=== PATIENT | female | born 1950 | race Caucasian/White ===

== ENCOUNTER 2020-01-08 06:43 | Day surgery (SDC) | payer MEDICARE, BC ==
[2020-01-08] MEDS ORDERED: Lactated Ringers 1,000 ML IV SCH (07:00)
[2020-01-08] MEDS ORDERED: Propofol 200 MG/20 ML SDV ONE (07:25)
[2020-01-08] MEDS ORDERED: fentaNYL 100 MCG/2 ML SDV ONE (07:27)
--- NOTE | 2020-01-08 12:23 | OR ---
PREOPERATIVE DIAGNOSIS: History of colon polyps. POSTOPERATIVE DIAGNOSES: 1. History of colon polyps. 2. Multiple colon polyps. ANESTHESIA: MAC anesthesia. COMPLICATIONS: None. BLOOD LOSS: None. FINDINGS: 1. Internal and external hemorrhoids. 2. Cecal polyps x3, 1 mm to 6 mm, hot snare and cold forceps. 3. Transverse colon polyp, 2 mm, cold forceps. 4. Splenic flexure polyp, 5 mm, hot snare. 5. Sigmoid colon polyp, 6 mm, hot snare. 6. Pancolonic diverticulosis. INDICATION FOR PROCEDURE: Ms. Campbell is a 69-year-old female who is here for routine screening colonoscopy. Her last colonoscopy was in 2013. She had 2 tubular adenomas. She has no personal or family history of colon cancer and denies any changes in bowel habits and no bloody or dark black stools. DETAILS OF PROCEDURE: After informed consent obtained, the patient was brought to the procedure room, placed in left lateral decubitus position. MAC anesthesia induced by Anesthesia colleagues. Digital rectal exam revealed external hemorrhoids. The colonoscope was then introduced into the rectum and advanced all the way to the cecum. The ileocecal valve and appendiceal orifice were photographed. The colonoscope was then slowly withdrawn. No pathology was identified other than what is mentioned above in the findings section. The patient tolerated the procedure well, was woken from anesthesia by Anesthesia colleagues without incident. START TIME: 07:39. CECUM TIME: 07:51. STOP TIME: 08:16. PATHOLOGY: A) Colon, cecal polyps: Fragments of tubular adenomas B) Colon, transverse polyp: Tubular adenoma C) Colon, splenic flexure polyp: Tubular adenoma D) Colon, sigmoid polyp: Fragments of tubular adenoma Recommended repeat screening colonoscopy in 3 years. RKM: 01/08/2020 08:21:24 MODL: 01/08/2020 08:58:19 /[id number] ROES
== END 2020-01-08 09:45 | disposition home or self-care (01) ==
LOC: VM.SDS 06:43
PROVIDERS: ATTEND Student in an Organized Health Care Education/Training Program
DX: Z12.11 Encounter for screening for malignant neoplasm of colon (principal); D12.0 Benign neoplasm of cecum; D12.3 Benign neoplasm of transverse colon; D12.5 Benign neoplasm of sigmoid colon; K57.30 Diverticulosis of large intestine without perforation or abscess without bleeding; I10 Essential (primary) hypertension; J43.1 Panlobular emphysema; Z98.890 Other specified postprocedural states; Z86.010 Personal history of colon polyps; Z79.899 Other long term (current) drug therapy; Z87.891 Personal history of nicotine dependence; Z79.01 Long term (current) use of anticoagulants
CPT/HCPCS: 00811; 36415; 45380; 45384; 45385; 85610; 88305; J2704; J3010; J7120

== ENCOUNTER 2021-01-31 13:55 | Emergency (ER) | payer MEDICARE, BC ==
--- NOTE | 2021-01-31 14:38 | EDM.PDOC ---
ED HPI GENERAL MEDICAL PROBLEM - General Chief Complaint: General Stated Complaint: headache, not feeling well, abnormal taste Time Seen by Provider: 01/31/21 14:38 Source of Information: Reports: Patient History Limitations: Reports: No Limitations - History of Present Illness INITIAL COMMENTS - FREE TEXT/NARRATIVE: Patient states that she has not been feeling well for the last several days. She has had a headache, fatigue, lack of appetite and states that food does not taste right. headache is behind her eyes. NO fevers or chills. No cough. normal stools and urine. She and her are to go to a family gathering today and she became concerned she was ill or had covid and wanted evaluation prior to attending. Has had her covid vaccinations. No ill contacts, no travel. She states she did have a fall two weeks ago and fell on her right wrist and head. She was seen and diagnosed with a right wrist fracture. No head CT was done. She is on coumadin Duration: Day(s): Location: Reports: Head Quality: Reports: Ache Severity: Moderate Improves with: Reports: Medication (hydrocodone that is already on) Associated Symptoms: Reports: Headaches, Loss of Appetite, Malaise - Related Data Allergies Allergy/AdvReac Type Severity Reaction Status Date / Time No Known Allergies Allergy Verified 01/31/21 14:02 Home Meds: Home Meds Acetaminophen [Tylenol Extra Strength] 1 - 2 tab PO Q6H PRN 04/24/14 [History] Cholecalciferol (Vitamin D3) [Vitamin D3] 1 cap PO DAILY 04/24/14 [History] Cyanocobalamin (Vitamin B-12) [Vitamin B-12] 1 tab PO DAILY 04/24/14 [History] Hydrocodone/Acetaminophen [[place] 5-325] 1 tab PO QID PRN 04/24/14 [History] Lansoprazole [Prevacid] 1 tab PO DAILY 04/24/14 [History] Pramipexole [Mirapex] 4 mg PO BEDTIME 04/24/14 [History] Warfarin Sodium [Jantoven] 2.5 - 5 mg PO DAILY 04/24/14 [History] Acyclovir [Zovirax] 400 mg PO TID PRN 12/19/19 [History] DULoxetine [Cymbalta] 60 mg PO DAILY 12/19/19 [History] Pregabalin 50 mg PO TID 12/19/19 [History] atorvaSTATin [Lipitor] 20 mg PO DAILY 12/19/19 [History] Amoxicillin/Potassium Clav [Augmentin 875-125 Tablet] 1 each PO Q12HR 4 Days #8 tablet 01/31/21 [Rx] Past Medical History HEENT History: Reports: Cataract, Macular Degeneration, Other (See Below) Other HEENT History: PRESBYOPIA; PSEUDOPHAKIA; HYPERMETROPIA. COLD SORES. NOSE LESION. VOCAL CORD POLYP Cardiovascular History: Reports: Blood Clots/VTE/DVT, CAD, High Cholesterol, Hypertension, Prior Cardiac Arrest, Other (See Below) Other Cardiovascular History: PERFORATED VENTRICLE DURING ANGIOGRAM. 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 ATHEROSCLEROSIS. POST-THROMBOTIC SYNDROME. VARICOSE VEINS. VENOUS INSUFFICIENCY Other Respiratory History: PANLOBULAR EMPHYSEMA Gastrointestinal History: Reports: Colon Polyp, Diverticulosis, Hiatal Hernia Genitourinary History: Reports: Neurogenic Bladder, Urinary Incontinence FEEDER LOADER History: Reports: Other (See Below) Other FEEDER LOADER History: POST MENOPAUSAL Musculoskeletal History: Reports: Back Pain, Chronic Other Musculoskeletal History: SPINAL CORD STROKE. SPINAL STENOSIS. TRUNAKKEIKAR FX Other Neuro History: RLS Psychiatric History: Reports: Other (See Below) Other Psychiatric History: PAIN CONTRACT. TOBACCO USE. CHRONIC USE OF OPIOIDS. NICOTINE DEPENDENCE. INSOMNIA Endocrine/Metabolic History: Reports: Osteopenia, Vitamin D Deficiency Hematologic History: Reports: B12 Deficiency Oncologic (Cancer) History: Reports: Basal Cell Carcinoma Dermatologic History: Reports: Other (See Below) Other Dermatologic History: BACK SKIN LESION - Past Surgical History HEENT Surgical History: Reports: Cataract Surgery Other HEENT Surgeries/Procedures: TEETH EXTRACTION Cardiovascular Surgical History: Reports: Vascular Surgery Other Cardiovascular Surgeries/Procedures: OPEN HEART SURGERY AFTER PERFORATED VENTRICAL DURING ANGIOGRAM Musculoskeletal Surgical History: Reports: Carpal Tunnel, ORIF Dermatological Surgical History: Reports: Skin Biopsy Social & Family History - Tobacco Use Tobacco Use Status *Q: Former Tobacco User Used Tobacco, but Quit: Yes Month/Year Tobacco Last Used: 11/25 - Caffeine Use Caffeine Use: Reports: Coffee ED ROS GENERAL - Review of Systems Review Of Systems: See Below Constitutional: Reports: Malaise, Weakness, Fatigue, Decreased Appetite. Denies: Fever, Chills HEENT: Reports: Rhinitis. Denies: Eye Discharge, Sinus Problem, Throat Pain, Throat Swelling Respiratory: Denies: Shortness of Breath, Wheezing, Pleuritic Chest Pain, Cough Cardiovascular: Reports: Lightheadedness. Denies: Chest Pain, Dyspnea on Exertion, Edema Endocrine: Reports: Fatigue GI/Abdominal: Reports: Anorexia, Decreased Appetite. Denies: Diarrhea, Nausea, Vomiting : Reports: Dysuria. Denies: Hematuria, Incontinence Musculoskeletal: Reports: Muscle Pain (non specific) Skin: Reports: No Symptoms Neurological: Reports: Headache Hematologic/Lymphatic: Reports: No Symptoms ED EXAM, GENERAL - Physical Exam Exam: See Below Exam Limited By: No Limitations General Appearance: Alert, WD/WN, No Apparent Distress Eye Exam: Bilateral Eye: EOMI, Normal Inspection, PERRL, Other (no nystagmus) Ears: Normal External Exam Nose: Normal Inspection, Normal Mucosa, Clear Rhinorrhea Throat/Mouth: Normal Inspection, Normal Lips, Normal Voice, Other (minimal dry mucous membranes) Neck: Non-Tender, Full Range of Motion. No: Lymphadenopathy (L), Lymphadenopathy (R) Respiratory/Chest: No Respiratory Distress, Lungs Clear, Normal Breath Sounds Cardiovascular: Normal Peripheral Pulses, Regular Rate, Rhythm, No Murmur GI/Abdominal: Normal Bowel Sounds, Soft, Non-Tender, No Organomegaly, No Distention, No Abnormal Bruit Back Exam: Normal Inspection, Full Range of Motion. No: CVA Tenderness (L), CVA Tenderness (R) Extremities: Normal Inspection, Normal Range of Motion, Non-Tender Neurological: Alert, Oriented, CN II-XII Intact, Normal Cognition, Normal Gait (negative pronator drift. normal finger to nose with eyes closed, normal heel to simon), No Motor/Sensory Deficits Psychiatric: Normal Affect Course - Vital Signs Last Recorded V/S: Last Vital Signs Temp 36.6 C 01/31/21 13:55 Pulse 84 01/31/21 13:55 Resp 18 01/31/21 13:55 BP 144/72 H 01/31/21 13:55 Pulse Ox 96 01/31/21 13:55 - Orders/Labs/Meds Orders: Active Orders 24 hr Category Date Time Status AMMONIA [REF] Stat Lab 01/31/21 14:49 Received Labs: Laboratory Tests 01/31/21 01/31/21 01/31/21 Range/Units 14:27 14:49 14:49 WBC 4.8 (4.0-10.0) x10^3/uL RBC 3.90 L (4.00-5.50) x10^6/uL Hgb 12.4 (12.0-16.0) g/dL Hct 36.2 (33.0-47.0) % MCV 92.8 (78.0-93.0) fL MCH 31.8 (26.0-32.0) pg MCHC 34.3 (32.0-36.0) g/dL RDW Coeff of Virgie 14.9 (10.0-15.0) % Plt Count 159 (130-400) x10^3/uL Neut % (Auto) 56.2 (50.0-80.0) % Lymph % (Auto) 33.5 (25.0-50.0) % [place] % (Auto) 8.0 (2.0-11.0) % Eos % (Auto) 1.7 (0.0-4.0) % Baso % (Auto) 0.6 (0.2-1.2) % PT (9.9-12.5) SEC INR (2.0-3.5) Sodium 142 (136-145) mmol/L Potassium 3.6 (3.5-5.1) mmol/L Chloride 105 (98-107) mmol/L Carbon Dioxide 28 (21-32) mmol/L Anion Gap 12.6 (5-15) mmol/L BUN 17 (7-18) mg/dL Creatinine 1.2 H (0.55-1.02) mg/dL Est Cr Clr Drug Dosing TNP Estimated GFR (MDRD) 44 Glucose 102 H (70-99) mg/dL Calcium 8.8 (8.5-10.1) mg/dL Corrected Calcium 9.0 (8.5-10.1) mg/dL Total Bilirubin 0.7 (0.2-1.0) mg/dL AST 12 L (15-37) U/L ALT 19 (14-59) U/L Alkaline Phosphatase 93 (46-116) U/L Total Protein 7.3 (6.4-8.2) g/dL Albumin 3.7 (3.4-5.0) g/dL Globulin 3.6 Albumin/Globulin Ratio 1.03 Urine Color (YELLOW) Urine Appearance (CLEAR) Urine pH (5.0-8.0) Ur Specific [place] Urine Protein (NEGATIVE) mg/dL Urine Glucose (UA) (NEGATIVE) mg/dL Urine Ketones (NEGATIVE) mg/dL Urine Occult Blood (NEGATIVE) Urine Nitrite (NEGATIVE) Urine Bilirubin (NEGATIVE) Urine Urobilinogen (0.2) EU/dL Ur Leukocyte Esterase (NEGATIVE) Urine RBC (NOT SEEN) /HPF Urine WBC (NOT SEEN) /HPF Ur Squamous Epith Cells (NOT SEEN) /HPF Amorphous Sediment Urine Bacteria (NOT SEEN) /HPF Urine Mucus (NOT SEEN) /LPF SARS CoV-2 RNA Rapid BRYAN Negative (NEGATIVE) 01/31/21 01/31/21 Range/Units 14:49 14:58 WBC (4.0-10.0) x10^3/uL RBC (4.00-5.50) x10^6/uL Hgb (12.0-16.0) g/dL Hct (33.0-47.0) % MCV (78.0-93.0) fL MCH (26.0-32.0) pg MCHC (32.0-36.0) g/dL RDW Coeff of Virgie (10.0-15.0) % Plt Count (130-400) x10^3/uL Neut % (Auto) (50.0-80.0) % Lymph % (Auto) (25.0-50.0) % [place] % (Auto) (2.0-11.0) % Eos % (Auto) (0.0-4.0) % Baso % (Auto) (0.2-1.2) % PT 22.7 H (9.9-12.5) SEC INR 2.0 (2.0-3.5) Sodium (136-145) mmol/L Potassium (3.5-5.1) mmol/L Chloride (98-107) mmol/L Carbon Dioxide (21-32) mmol/L Anion Gap (5-15) mmol/L BUN (7-18) mg/dL Creatinine (0.55-1.02) mg/dL Est Cr Clr Drug Dosing Estimated GFR (MDRD) Glucose (70-99) mg/dL Calcium (8.5-10.1) mg/dL Corrected Calcium (8.5-10.1) mg/dL Total Bilirubin (0.2-1.0) mg/dL AST (15-37) U/L ALT (14-59) U/L Alkaline Phosphatase (46-116) U/L Total Protein (6.4-8.2) g/dL Albumin (3.4-5.0) g/dL Globulin Albumin/Globulin Ratio Urine Color Dark yellow H (YELLOW) Urine Appearance Turbid H (CLEAR) Urine pH 5.5 (5.0-8.0) Ur Specific [place] 1.025 Urine Protein 100 H (NEGATIVE) mg/dL Urine Glucose (UA) Negative (NEGATIVE) mg/dL Urine Ketones Trace H (NEGATIVE) mg/dL Urine Occult Blood Trace-lysed H (NEGATIVE) Urine Nitrite Positive H (NEGATIVE) Urine Bilirubin Negative (NEGATIVE) Urine Urobilinogen 0.2 (0.2) EU/dL Ur Leukocyte Esterase Moderate H (NEGATIVE) Urine RBC 0-5 (NOT SEEN) /HPF Urine WBC >100 H (NOT SEEN) /HPF Ur Squamous Epith Cells Moderate H (NOT SEEN) /HPF Amorphous Sediment Moderate Urine Bacteria Moderate H (NOT SEEN) /HPF Urine Mucus Few H (NOT SEEN) /LPF SARS CoV-2 RNA Rapid BRYAN (NEGATIVE) Meds: Medications Discontinued Medications Generic Name Dose Route Start Last Admin Trade Name Freq PRN Reason Stop Dose Admin Amoxicillin/Clavulanate Potassium 1 packet 01/31/21 15:50 01/31/21 15:59 Take Home: Amoxicillin/Clavulanate K 875-125 Mg Tab, 2 Tab Pack PO 01/31/21 15:51 1 packet ONETIME ONE Administration - Radiology Interpretation Free Text/Narrative:: Ct head with no acute process - Re-Assessments/Exams Free Text/Narrative Re-Assessment/Exam: 01/31/21 17:17 patient denies needing anything for her headache, would just like an evaluation and make sure she is fine evaluation is negative other than a UTI. on coumadin. States the last medication she was on worked well. Medication search reveals it was bactrim. Concern for interaction with coumadin. Last urine culture from chart reveals sensitivity to all antibiotics but intermediate to macrobid. Will put her on augmentin , given two for today and script for rest Departure - Departure Time of Disposition: 15:48 Disposition: Home, Self-Care 01 Clinical Impression: Urinary tract infection - Discharge Information *PRESCRIPTION DRUG MONITORING PROGRAM REVIEWED*: Not Applicable *COPY OF PRESCRIPTION DRUG MONITORING REPORT IN PATIENT DELBERT: Not Applicable Prescriptions: Amoxicillin/Potassium Clav [Augmentin 875-125 Tablet] 1 each PO Q12HR 4 Days #8 tablet Instructions: Urinary Tract Infection, Adult Referrals: Fiorella England MD [Primary Care Provider] - Forms: ED Department Discharge Additional Instructions: You are given a dose of Augmentin for today, take one now and one at bedtime. increased your fluid. Fill your prescription and complete treatment. You will be contacted as to need for changes in antibiotics. Other testing is normal Follow up with your PCP. Recheck your INR at the end of treatment as antibiotics can affect this. COVID testing was negative and no acute intercranial process is noted Sepsis Event Note (ED) - Evaluation Sepsis Screening Result: No Definite Risk - Focused Exam Vital Signs: Vital Signs Temp Pulse Resp BP Pulse Ox 01/31/21 13:55 36.6 C 84 18 144/72 H 96 - My Orders Last 24 Hours: My Active Orders 01/31/21 14:49 AMMONIA [REF] Stat - Assessment/Plan Last 24 Hours: My Active Orders 01/31/21 14:49 AMMONIA [REF] Stat
[2021-01-31 15:15] LABS: CHLORIDE,CL 105 mmol/L (98-107); SODIUM,NA 142 mmol/L (136-145)
--- NOTE | 2021-01-31 15:15 | CT ---
[id number] CT/CT Head WO IV EXAM: CT Head WO IV CLINICAL DATA: TRAUMA ANTICOAGULATED PATIENT COMPARISON: No previous similar exam is available for comparison. 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 There is no hemorrhage or hydrocephalus. There are no extra-axial fluid collections. There are no sites of abnormal attenuation. IMPRESSION: NO PLAIN CT EVIDENCE OF ACUTE INTRACRANIAL PROCESS. Merlin Flynn MD 01/31/21 [id number] Thank you for allowing us to participate in the care of your patient.
[2021-01-31 15:20] LABS: ANION GAP 12.6 mmol/L (5-15)
[2021-01-31] MEDS ORDERED: Take Home: Amoxicillin/Clavulanate K 875-125 MG Tab, 2 Tab Pack PO ONE (15:50)
== END 2021-01-31 16:04 | disposition home or self-care (01) ==
LOC: VM.ED 13:55
DX: N39.0 Urinary tract infection, site not specified (principal); I25.10 Atherosclerotic heart disease of native coronary artery without angina pectoris; E78.00 Pure hypercholesterolemia, unspecified; I10 Essential (primary) hypertension; Z87.891 Personal history of nicotine dependence; Z20.822 Contact with and (suspected) exposure to COVID-19; Z79.01 Long term (current) use of anticoagulants; Z79.899 Other long term (current) drug therapy
CPT/HCPCS: 36415; 70450; 80053; 81001; 82140; 85025; 85610; 99284; 99284-25; A9270-GY; U0002

== ENCOUNTER 2023-04-21 06:54 | Day surgery (SDC) | payer MEDICARE, BC ==
[2023-04-21] MEDS ORDERED: Lactated Ringers 1,000 ML IV SCH (07:00)
[2023-04-21] MEDS ORDERED: Propofol 200 MG/20 ML SDV ONE ×2 (08:26→09:08)
[2023-04-21] MEDS ORDERED: fentaNYL 100 MCG/2 ML SDV ONE (08:26)
== END 2023-04-21 10:45 | disposition home or self-care (01) ==
LOC: VM.SDS 06:54
PROVIDERS: ATTEND Student in an Organized Health Care Education/Training Program
DX: K31.811 Angiodysplasia of stomach and duodenum with bleeding (principal); D64.9 Anemia, unspecified; I10 Essential (primary) hypertension; E78.00 Pure hypercholesterolemia, unspecified; Z86.718 Personal history of other venous thrombosis and embolism; G25.81 Restless legs syndrome; G89.29 Other chronic pain; M54.42 Lumbago with sciatica, left side; Z79.01 Long term (current) use of anticoagulants; Z79.899 Other long term (current) drug therapy; M85.80 Other specified disorders of bone density and structure, unspecified site; Z87.891 Personal history of nicotine dependence; G47.01 Insomnia due to medical condition
CPT/HCPCS: 00811; J2704; J3010; J7120

== ENCOUNTER 2025-03-09 16:04 | Inpatient (IN) | payer MEDICARE, BC ==
[2025-03-09] MEDS ORDERED: Sodium Chloride 0.9% 10 ML Syringe FLUSH PRN (16:13)
[2025-03-09 16:32] LABS: BASOPHILS ABSOLUTE AUTO 0.0 x10^3/uL (0.0-0.2); BASOPHILS PERCENT AUTO 0.1 % (0.2-1.2); EOSINOPHILS ABSOLUTE AUTO 0.0 x10^3/uL (0.0-0.5); EOSINOPHILS PERCENT AUTO 0.1 % (0.0-4.0); IMMATURE GRAN ABSOLUTE AUTO 0.03 x10^3/uL (0.00-0.07); IMMATURE GRAN PERCENT AUTO 0.20 % (0.00-0.43); LYMPHOCYTES ABSOLUTE AUTO 1.2 x10^3/uL (1.0-4.8); LYMPHOCYTES PERCENT AUTO 6.8 % (25.0-50.0); MONOCYTES ABSOLUTE AUTO 1.0 x10^3/uL (0.0-0.8); MONOCYTES PERCENT AUTO 5.5 % (2.0-11.0); NEUTROPHILS ABSOLUTE AUTO 15.3 x10^3/uL (1.8-7.7); NEUTROPHILS PERCENT AUTO 87.3 % (50.0-80.0); PLATELET COUNT,PLT 371 x10^3/uL (130-400); RED BLOOD CELL COUNT 3.67 x10^6/uL (4.00-5.50); WHITE BLOOD CELL COUNT,WBC 17.5 x10^3/uL (4.0-10.0)
[2025-03-09] MEDS: Ondansetron 4 MG/2 ML SDV IVPUSH ONE (16:33)
[2025-03-09] MEDS: Lactated Ringers 1,000 ML IV ONE (16:33)
[2025-03-09 16:53] LABS: A/G RATIO 0.56; ALANINE AMINOTRANSFERASE,ALT 12.0 U/L (14-59); ASPARTATE AMNIOTRANSFERASE,AST 23.0 U/L (15-37); BILIRUBIN TOTAL 0.4 mg/dL (0.2-1.0); BLOOD UREA NITROGEN,BUN 17.0 mg/dL (7-18); CARBON DIOXIDE,CO2 25.0 mmol/L (21-32); CHLORIDE,CL 102.0 mmol/L (98-107); CREATININE 1.4 mg/dL (0.55-1.02); EST CRCL DRUG DOSING (CG) 30.76 mL/min; GLUCOSE RANDOM 143.0 mg/dL (70-99); POTASSIUM,K 3.6 mmol/L (3.5-5.1); PROTEIN TOTAL,TP 7.0 g/dL (6.4-8.2); SODIUM,NA 139.0 mmol/L (136-145)
[2025-03-09 17:01] LABS: ESTIMATED GFR 39.0 mL/min (>=60)
[2025-03-09 17:14] LABS: INR 1.5 (0.9-1.1)
[2025-03-09] MEDS: Clindamycin Phosphate in D5W 600 MG in Premix Bag 1 BAG IV ONE (18:06)
[2025-03-09] MEDS ORDERED: Acetaminophen/HYDROcodone 325-5 MG Tab PO PRN (20:26)
[2025-03-09] MEDS ORDERED: Sennosides/Docusate Sodium 50-8.6 MG Tab PO PRN (20:26)
[2025-03-09] MEDS ORDERED: Ondansetron 4 MG/2 ML SDV IV PRN (20:26)
[2025-03-09] MEDS: NS + KCl 20mEq/L 1,000 ML IV SCH (21:54)
[2025-03-09 23:43] LABS: LACTIC ACID 0.8 mmol/L (0.4-2.0)
[2025-03-10 06:43] LABS: BASOPHILS ABSOLUTE AUTO 0.0 x10^3/uL (0.0-0.2); BASOPHILS PERCENT AUTO 0.2 % (0.2-1.2); EOSINOPHILS ABSOLUTE AUTO 0.1 x10^3/uL (0.0-0.5); EOSINOPHILS PERCENT AUTO 0.9 % (0.0-4.0); IMMATURE GRAN ABSOLUTE AUTO 0.02 x10^3/uL (0.00-0.07); IMMATURE GRAN PERCENT AUTO 0.20 % (0.00-0.43); LYMPHOCYTES ABSOLUTE AUTO 1.3 x10^3/uL (1.0-4.8); LYMPHOCYTES PERCENT AUTO 12.4 % (25.0-50.0); MONOCYTES ABSOLUTE AUTO 0.7 x10^3/uL (0.0-0.8); MONOCYTES PERCENT AUTO 7.4 % (2.0-11.0); NEUTROPHILS ABSOLUTE AUTO 7.9 x10^3/uL (1.8-7.7); NEUTROPHILS PERCENT AUTO 78.9 % (50.0-80.0); PLATELET COUNT,PLT 257 x10^3/uL (130-400); RED BLOOD CELL COUNT 2.91 x10^6/uL (4.00-5.50); WHITE BLOOD CELL COUNT,WBC 10.1 x10^3/uL (4.0-10.0)
[2025-03-10 06:57] LABS: BLOOD UREA NITROGEN,BUN 16.0 mg/dL (7-18); CARBON DIOXIDE,CO2 26.0 mmol/L (21-32); CHLORIDE,CL 107.0 mmol/L (98-107); CREATININE 0.9 mg/dL (0.55-1.02); EST CRCL DRUG DOSING (CG) 47.85 mL/min; GLUCOSE RANDOM 86.0 mg/dL (70-99); POTASSIUM,K 4.0 mmol/L (3.5-5.1); SODIUM,NA 142.0 mmol/L (136-145)
[2025-03-10 07:00] LABS: ESTIMATED GFR 66.0 mL/min (>=60)
[2025-03-10 07:08] LABS: INR 1.6 (0.9-1.1)
[2025-03-10] MEDS ORDERED: Lidocaine 2% Viscous Solution 15 ML UD PO PRN (08:37)
[2025-03-10] MEDS ORDERED: Ondansetron 4 MG Tab.DIS PO PRN (08:39)
[2025-03-10] MEDS ORDERED: LANSOPRAZOLE 30 MG PO SCH (09:00)
[2025-03-10] MEDS: Morphine Oral Concentrate 20 MG/ML 30 ML Bottle PO PRN (09:21)
[2025-03-10] MEDS: Cholecalciferol (Vitamin D3) 10 MCG Tab PO SCH (09:24)
[2025-03-10] MEDS: metroNIDAZOLE/Normal Saline 500 MG in Premix Bag 1 BAG IV SCH (09:27)
[2025-03-10] MEDS: ALPHA LIPOIC ACID 600 MG PO SCH (11:53)
[2025-03-10] MEDS: SIMETHICONE PO PRN (21:14)
[2025-03-10] MEDS: [UNRECOGNIZED DRUG - OTHER] PO PRN (21:14)
[2025-03-10] MEDS: DIPHENHYD PO PRN (21:14)
[2025-03-10] MEDS: LIDOCAINE PO PRN (21:14)
[2025-03-11 06:48] LABS: BASOPHILS ABSOLUTE AUTO 0.0 x10^3/uL (0.0-0.2); BASOPHILS PERCENT AUTO 0.6 % (0.2-1.2); EOSINOPHILS ABSOLUTE AUTO 0.1 x10^3/uL (0.0-0.5); EOSINOPHILS PERCENT AUTO 1.5 % (0.0-4.0); IMMATURE GRAN ABSOLUTE AUTO 0.01 x10^3/uL (0.00-0.07); IMMATURE GRAN PERCENT AUTO 0.10 % (0.00-0.43); LYMPHOCYTES ABSOLUTE AUTO 1.0 x10^3/uL (1.0-4.8); LYMPHOCYTES PERCENT AUTO 14.8 % (25.0-50.0); MONOCYTES ABSOLUTE AUTO 0.5 x10^3/uL (0.0-0.8); MONOCYTES PERCENT AUTO 7.3 % (2.0-11.0); NEUTROPHILS ABSOLUTE AUTO 5.1 x10^3/uL (1.8-7.7); NEUTROPHILS PERCENT AUTO 75.7 % (50.0-80.0); PLATELET COUNT,PLT 291 x10^3/uL (130-400); RED BLOOD CELL COUNT 3.07 x10^6/uL (4.00-5.50); WHITE BLOOD CELL COUNT,WBC 6.8 x10^3/uL (4.0-10.0)
[2025-03-11 07:21] LABS: A/G RATIO 0.44; ALANINE AMINOTRANSFERASE,ALT 9.0 U/L (14-59); ASPARTATE AMNIOTRANSFERASE,AST 18.0 U/L (15-37); BILIRUBIN TOTAL 0.4 mg/dL (0.2-1.0); BLOOD UREA NITROGEN,BUN 7.0 mg/dL (7-18); CARBON DIOXIDE,CO2 27.0 mmol/L (21-32); CHLORIDE,CL 107.0 mmol/L (98-107); CREATININE 0.8 mg/dL (0.55-1.02); EST CRCL DRUG DOSING (CG) 53.83 mL/min; GLUCOSE RANDOM 91.0 mg/dL (70-99); POTASSIUM,K 3.9 mmol/L (3.5-5.1); PROTEIN TOTAL,TP 5.9 g/dL (6.4-8.2); SODIUM,NA 142.0 mmol/L (136-145)
[2025-03-11 07:38] LABS: ESTIMATED GFR 76.0 mL/min (>=60)
[2025-03-11 09:55] LABS: INR 1.7 (0.9-1.1)
[2025-03-11] MEDS ORDERED: Morphine Oral Concentrate 20 MG/ML 30 ML Bottle PO PRN (13:07)
== END 2025-03-11 16:48 | disposition short-term general hospital (02) | DRG 178 ==
LOC: VM.ED 16:04 → SUPCPDRO 16:04 → VM.MS 17:43
PROVIDERS: ADMIT Family Medicine; ATTEND Family Medicine
DX: J69.0 Pneumonitis due to inhalation of food and vomit (principal); E46 Unspecified protein-calorie malnutrition; J44.9 Chronic obstructive pulmonary disease, unspecified; E78.00 Pure hypercholesterolemia, unspecified; I25.10 Atherosclerotic heart disease of native coronary artery without angina pectoris; Z66 Do not resuscitate; K44.9 Diaphragmatic hernia without obstruction or gangrene; M54.9 Dorsalgia, unspecified; G89.29 Other chronic pain; M85.80 Other specified disorders of bone density and structure, unspecified site; E55.9 Vitamin D deficiency, unspecified; D64.9 Anemia, unspecified; E53.8 Deficiency of other specified B group vitamins; F17.200 Nicotine dependence, unspecified, uncomplicated; C14.0 Malignant neoplasm of pharynx, unspecified; D72.829 Elevated white blood cell count, unspecified; I10 Essential (primary) hypertension; Z68.23 Body mass index [BMI] 23.0-23.9, adult; Z79.01 Long term (current) use of anticoagulants; Z86.718 Personal history of other venous thrombosis and embolism; Z98.890 Other specified postprocedural states; Z98.49 Cataract extraction status, unspecified eye; Z79.899 Other long term (current) drug therapy
CPT/HCPCS: 36415; 71045; 71046; 80048; 80053; 83605; 85025; 85610; 87040; 92610-GN; 94640; 96361; 96374; 97161-GP; 97165-GO; 99223-GT; 99284; 99285-25; A9270-GY; J0696; J0736; J1650; J1836; J2270; J2405; J3480; J7120; Q3014